=== PATIENT | male | born 1985 | race Caucasian/White ===

== ENCOUNTER 2017-04-04 07:13 | Day surgery (SDC) | payer OTHER ==
[2017-04-04] MEDS ORDERED: Propofol 10 mg/ml Inj (20 ML) ONE ×2 (08:02→08:15)
[2017-04-04] MEDS ORDERED: Lactated Ringer's 500 ML IV ONE (08:04)
[2017-04-04 08:41] VITALS: TEMP 97; O2SAT 99
[2017-04-04 08:52] VITALS: BP 95/48; PULSE 59; RESP 18
== END 2017-04-04 09:33 | disposition home or self-care (01) ==
LOC: H.ENDO 07:13
PROVIDERS: ATTEND Internal Medicine Gastroenterology
DX: R10.30 Lower abdominal pain, unspecified (principal); K64.8 Other hemorrhoids; Z21 Asymptomatic human immunodeficiency virus [HIV] infection status; K30 Functional dyspepsia; K31.9 Disease of stomach and duodenum, unspecified